=== PATIENT | female | born 1985 | race American Indian/Alaskan Native ===

== ENCOUNTER 2021-01-19 17:55 | Emergency (ER) | payer MEDICAID, MEDICARE ==
[2021-01-19 19:25] VITALS: BP 131/84
--- NOTE | 2021-01-19 19:36 | Emergency Department Report ---
Chief Complaint: Dental/Oral Stated Complaint: FACIAL PAIN/TOOTHACHE Time Seen by Provider: 01/19/21 19:22 - HPI History of Present Illness: 35-year-old female patient presents emergency department with complaints of ongoing allergies. States her symptoms have worsened over the last few days. Symptoms are consistent with prior flareups of her allergies. She also complains of ongoing diffuse dental pain. She is scheduled to see a dentist within 1 week. No known sick contacts. No current steroid or antibiotic use. Denies fever, chills, sore throat, cough, purulent drainage, dysphagia. Denies all other complaints at this time. - ROS Review of Systems: GENERAL: Negative for fever. ENT: Positive for nasal congestion, sneezing, dental pain. CARDIOVASCULAR: Negative for chest pain. PULMONARY: Negative for shortness of breath. GASTROINTESTINAL: Negative for abdominal pain. MUSCULOSKELETAL: Negative for back pain. NEUROLOGICAL: Negative for headache. INTEGUMENTARY: Negative for rash. - Exam Vital Signs: See nursing note Physical Exam: General: Awake, appropriately interactive, no acute distress. ENT: Diffuse dental caries without evidence of dental abscess. Oral mucosa is moist. The gingiva appear normal. Sublingual, submental, and submandibular spaces all soft, without edema. No evidence for maxillary or buccal space abscess. No trismus. Patient is speaking in full sentences and handling secretions without difficulty. Neck: Supple. Full range of motion intact. Cardiovascular: Tachycardic. Normal peripheral perfusion. Pulmonary: Clear to auscultation. No respiratory distress. Patient is speaking normally without use of accessory muscles. Skin: No apparent rashes or lesions. Neurological: No facial asymmetry. Speech is clear. Follows commands. Patient is alert and oriented. Musculoskeletal: Moves all four extremities spontaneously with normal range of motion. Psych: Cooperative. Appropriate mood and affect. MSE screening note: Focused history and physical exam performed. Due to findings the following was ordered: ED Medical Decision Making - Medical Decision Making Patient is afebrile, normal vital signs (initially elevated heart rate repeated and found to be normal without intervention), no evidence of airway obstruction or systemic illness. Discharged home with prescription for antihistamines and antibiotics for dental prophylaxis. Emphasized the importance of calling dentist Thursday to arrange for close outpatient follow-up. Patient expressed understanding and is agreeable to plan of care. Strict return precautions provided. ED Disposition for MSE Clinical Impression: Dental caries Allergies Qualifiers: Encounter type: initial encounter Qualified Code(s): T78.40XA - Allergy, unspecified, initial encounter Disposition: MED SCREENING EXAM-LEFT Is pt being admited?: No Does the pt Need Aspirin: No Condition: Stable Instructions: Allergies, Adult, Preventive Dental Care, Adult Additional Instructions: Take Penicillin as directed. Take Claritin as directed. Follow-up with your dentist as scheduled this week. Follow-up with your primary care provider this week. Call Thursday to schedule an appointment. Return to the emergency department immediately for new or worsening symptoms. Prescriptions: Loratadine [Claritin] 10 mg PO DAILY 14 Days #14 tablet Penicillin Vk [Veetids TAB] 500 mg PO QID 7 Days tablet Referrals: BRIAN KEE MD [Staff Physician] - 3-5 Days Time of Disposition: 19:36
== END 2021-01-19 20:50 | disposition left against medical advice (07) ==
LOC: ED 17:55
DX: T78.40XA Allergy, unspecified, initial encounter (principal); K02.9 Dental caries, unspecified; Z53.21 Procedure and treatment not carried out due to patient leaving prior to being seen by health care provider; X58.XXXA Exposure to other specified factors, initial encounter